=== PATIENT | male | born 1975 | race Caucasian/White ===

== ENCOUNTER → 2017-11-19 | Outpatient (CLI) | payer OTHER, BC ==
[~2017-11-19] MED LIST: IOPAMIDOL-200 50 ML VIAL IS ONE
--- NOTE | 2017-11-19 10:55 | RADIOLOGY IMAGING REPORT ---
FACILITY: [facility] - [place] PATIENT NAME: Олег Mijares : 1975 MR: [id number] V: [id number] EXAM DATE: ORDERING PHYSICIAN: LIAN VILLALBA TECHNOLOGIST: Location: [facility] [place] Patient: Олег Mijares : 1975 Visit/Account:[id number] Date of Sevice: 11/19/2017 SHOULDER RIGHT W CONTRAST COMPARISON: None. HISTORY: Rotator cuff tear, fell from a horse 5 days ago. Assess rotator cuff tear and biceps attach ment. Patient has a metal plate in the skull which reportedly precludes MRI. TECHNIQUE: Post arthrogram axial CT of the right shoulder with coronal and sagittal reformats. One of the following dose optimization techniques was utilized in the performance of this exam: auto mated exposure control; adjustment of the mA and/or kV according to patient size; or use of iterative reconstruction technique. Specific details can be referenced in the facility's radiology CT exam op erational policy. CONTRAST: A right glenohumeral arthrogram was performed with fluoroscopic guidance by another physic jet earlier today, please see that report for details.. FINDINGS: BONES : No acute appearing fractures. No significant arthropathy or degenerative changes. No signi ficant bone lesions. Type II acromion without subacromial spur or evidence of os acromiale. The acrom ion is not low-lying. There is no Hill-Sachs or osseous Bankart deformity. FLUID: An iatrogenic, contrast containing glenohumeral effusion is present. Some of the injected con trast tracks medially along the subscapularis muscle and this is a common post arthrogram finding. Th ere is a small amount of arthrogram contrast in the subacromial/subdeltoid bursa indicative of a full -thickness rotator cuff tendon tear. There is a full-thickness tear of the supraspinatus tendon, retr acted about 2.7 cm from the insertion to the level of the undersurface of the acromion process. There is mild thickening of the subscapularis tendon which contains a small amount of contrast which is pr obably due to subscapularis tendinosis and injection technique. SOFT TISSUES: No focal muscle atrophy or appreciable muscle edema. OTHER: The long head of the biceps tendon has a normal CT arthrogram appearance, without evidence of significant tendinopathy or tear. There is no significant chondral loss or discrete labral tear. IMPRESSION: 1. Full-thickness tear of the right supraspinatus tendon, retracted about 2.7 cm from the insertion. 2. Normal CT arthrogram appearance of the long head of the biceps tendon. 3. Mild subscapularis tendinosis. 4. No acute fracture or malalignment. Report Dictated By: Shailesh Newberry at 11/19/2017 10:39 AM Report E-Signed By: Shailesh Newberry at 11/19/2017 10:50 AM WSN:[id number]
--- NOTE | 2017-11-19 14:46 | RADIOLOGY IMAGING REPORT ---
FACILITY: [facility] PATIENT NAME: Олег Mijares : 1975 MR: [id number] V: [id number] EXAM DATE: ORDERING PHYSICIAN: LIAN VILLALBA TECHNOLOGIST: Location: [facility] [place] Patient: Олег Mijares : 1975 Visit/Account:[id number] Date of Sevice: 11/19/2017 Exam type: ARTHROGRAM PRE-MRI History: Right shoulder injury Comparison: None. Findings: Informed consent was obtained. The right shoulder was prepped and draped usual sterile fashion. Loc al anesthesia was accomplished with 1% lidocaine. Under fluoroscopic guidance a 22-gauge spinal needle was advanced percutaneously into the anterior as pect right glenohumeral joint. Approximately 13 mL of a dilute Isovue-200 suspension was instilled i nto the right glenohumeral joint. The procedure was accomplished without apparent cortication. The fluoroscopy dose area product was 118.86 micro-Hernandez per meter squared . The patient then went to CT for further imaging IMPRESSION: 1. Successful fluoroscopically guided right shoulder arthrogram Report Dictated By: Nay Mills MD at 11/19/2017 2:35 PM Report E-Signed By: Nay Mills MD at 11/19/2017 2:41 PM WSN:[email or web address]
== END ==
LOC: CT 01:39
PROVIDERS: ATTEND Chiropractor
DX: M75.121 Complete rotator cuff tear or rupture of right shoulder, not specified as traumatic (principal)
CPT/HCPCS: 77002; Q9966